=== PATIENT | male | born 1950 | race Caucasian/White ===

== ENCOUNTER 2016-09-27 07:28 | Inpatient (IN) ==
--- NOTE | 2016-09-27 08:07 | Diag Imaging Result Doc PS360 ---
EXAM: CHEST-2 VIEWS HISTORY: poss sepsis TECHNIQUE: PA and lateral chest COMMENT: There is opacification in the left lower lobe which was not present on 03/01/2015. There may be some atelectasis in the right lower lobe as well. The heart size and primary vascularity are within normal limits. IMPRESSION: Left lower lobe pneumonia. Electronically signed by Deangelo Fleming 09/27/2016 8:04 AM
[2016-09-27] MEDS ORDERED: NS 1,000 ML ONE (08:21)
--- NOTE | 2016-09-27 08:23 | PROVIDER DOCUMENTATION ---
HPI-Abdominal Pain/GI Problem - General Chief Complaint: Abdominal Pain Stated Complaint: FALL/RIB PAIN Time Seen by Provider: 09/27/16 08:08 Source: patient, family Allergies/Adverse Reactions: Patient Allergies Allergy/AdvReac Type Severity Reaction Status Date / Time butorphanol tartrate * AdvReac Unknown Verified 03/01/15 17:21 [From Stadol] nalbuphine HCl * AdvReac Unknown Verified 03/01/15 17:21 [From Nubain] Home Medications: Home Medication List Medication Instructions Recorded Confirmed Last Taken Type Buprenorphine S.l. [Subutex] 8 mg SL BID #75 tablet 05/30/15 09/27/16 09/27/16 Rx - History of Present Illness-ABD Nature of Presenting Problems: has had L abd pain intermittantly for 3 mos. Pain is sharp, duration minutes, nothing makes it better, worse. Does not radiate. Says PCP told him to go see his spine doctor. Began running fever sev days ago. Has had nausea, thinks may be more short of breath than usual, not sure since has COPD Abdominal Pain Onset Location: reports: LUQ, LLQ Pain Radiation: reports: no radiation Quality of Pain: reports: sharp Severity in ED: reports: severe Onset/Duration: reports: other (3 mos) Timing: reports: intermittent Activities at Onset: reports: none Exposure to sick contacts?: No Modifying Factors: improves with: nothing Associated Symptoms: reports: fever/chills, nausea. denies: diarrhea Review of Systems - Adult - REVIEW OF SYSTEMS - ADULT Constitutional: reports: fever Eyes: reports: no symptoms reported Ears, Nose, Mouth & Throat: reports: no symptoms reported Cardiovascular: reports: no symptoms reported Respiratory: reports: see HPI, shortness of breath, wheezing Gastrointestinal: reports: see HPI Genitourinary: reports: see HPI Musculoskeletal: reports: no symptoms reported Integumentary: reports: no symptoms reported Neurological: reports: no symptoms reported Psychiatric: reports: no symptoms reported Endocrine: reports: no symptoms reported Hematologic/Lymphatic: reports: no symptoms reported Allergic/Immunologic: reports: no symptoms reported Past History - Adult - PAST MEDICAL HISTORY-ADULT Review of Records: reports: Medications Reviewed Major Childhood Illnesses: reports: history unknown, other (chronic pain) Cardiovascular: reports: denies history Respiratory: reports: COPD Gastrointestinal: reports: denies history Musculoskeletal: reports: other (chronic back pain) Neurological: reports: cognitive dysfunction Psychiatric: reports: ptsd Endocrine/Immune: reports: denies history Other Conditions: reports: denies history - PRIOR SURGERIES/PROCEDURES Surgical/Procedure History: reports: reviewed, not pertinent - FAMILY HISTORY Family History: other (unknown) - SOCIAL HISTORY Smoking: cigarettes Provider spent 3-5 mins advising pt. on dangers of tobacco.: Discussed manners to quit use, and f/u contacts for add'l counseling. Physical Exam-General - PHYSICAL EXAM-ADULT Initial Vital Signs Reviewed: Yes - CONSTITUTIONAL General Appearance: appears well, alert, mild distress - EYES Eyes: PERRL/EOMI, pink conjunctivae - HEAD, EARS, NOSE, MOUTH & THROAT HENMT: normocephalic/atraumatic, moist mucous membranes, normal ENT inspection, pharynx normal, other (poor dentition) - NECK Neck: full range of motion, supple - RESPIRATORY Respiratory: lungs clear, normal breath sounds, no respiratory distress, no accessory muscle use - CARDIOVASCULAR Cardiovascular: normal peripheral pulses, regular rate, rhythm, no edema, no murmur - GASTROINTESTINAL (ABDOMEN) Abdominal Exam: normal bowel sounds, soft, tenderness (mild, to L abd) - MUSCULOSKELETAL Back Exam: normal inspection, no CVA tenderness, no vertebral tenderness Extremity: normal range of motion, non-tender, normal inspection Peripheral Pulses: radial (L): 4+ - SKIN Integumentary: normal color, normal turgor, warm/dry - NEUROLOGIC Neurologic: magistrate assistant II-XII nml as tested, grossly normal, no motor/sensory deficits - PSYCHIATRIC Psych/Mental Status: normal mood/affect, normal thought content, normal thought process, oriented x 3 Progress - PLAN OF CARE/RESULTS Progress/Plan/Lab Results: Vital Signs - 8 hr 09/27/16 07:32 Temperature 102.1 F H Pulse Rate 120 H Respiratory Rate 20 Blood Pressure 121/76 O2 Sat by Pulse Oximetry 98 Orders Category Date Time Status Cardiac Monitoring DIRECTED Care 09/27/16 07:43 Active IV Insertion ORDERED Care 09/27/16 07:43 Active Notify MD of + Sepsis Screen NOW Care 09/27/16 07:43 Active CHEST-2 VIEWS [RAD] Stat Exams 09/27/16 07:43 Completed BLOOD CULTURE [BLDCUL] Stat Lab 09/27/16 08:14 Ordered CBC WITH DIFF [HEME] Stat Lab 09/27/16 08:14 Ordered CK PROFILE [SP CHEM] Stat Lab 09/27/16 08:14 Ordered COMPREHENSIVE METABOLIC PANEL [CHEM] Stat Lab 09/27/16 08:14 Ordered LACTATE, PLASMA [CHEM] Stat Lab 09/27/16 08:14 Ordered PROTIME WITH INR [COAG] Stat Lab 09/27/16 08:14 Ordered PTT [COAG] Stat Lab 09/27/16 08:14 Ordered TROPONIN T Stat Lab 09/27/16 08:14 Ordered Oxygen Device Stat Oth 09/27/16 07:43 Active Result Diagrams: 09/27/16 08:11 09/27/16 08:11 - CT/MRI 1 CT Study: Abdomen, Pelvis Impression: Abnormal CT Results: LLL pneumonia, loculated effusion - CONSULTS/PCP/HOSPITALIST Notification #1 *Consult/PCP/Hospitalist*: [place] Time Discussed: 10:15 Consult Disposition: Will see in ED, Admit Departure - Departure Date of Disposition Decision: 09/27/16 Time of Disposition Decision: 10:06 DIAGNOSIS: Loculated pleural effusion Left lower lobe pneumonia Qualifiers: Pneumonia type: due to unspecified organism Qualified Code(s): J18.1 - Lobar pneumonia, unspecified organism Disposition: ADMITTED INPATIENT 09 Certified Medical Emergency: Emergent Condition: Good Referrals and Follow-Ups: None,PCP [Primary Care Provider] - - Critical Care Note This patient required my direct & personal management of CC.: No
[2016-09-27] MEDS ORDERED: NS 1,000 ML IV ONE (08:27)
[2016-09-27 08:31] LABS: BASO% 0.1 % (0.0-0.8); EOS# 0.06 X1000 (0.0-0.7); EOS% 0.4 % (0.0-10.0); HEMATOCRIT 39.9 % (42.0-52.0); HEMOGLOBIN 13.9 g/dL (14.0-18.0); IMM GRAN# 0.02 X1000 (0.0-0.04); IMM GRAN% 0.1 % (0.0-0.5); LYMPH# 0.33 X1000 (1.2-3.4); LYMPH% 2.4 % (20.5-51.1); MANUAL DIFF NEEDED? NO; MCH 30.4 PG (27-31); MCHC 34.8 g/dL (33-37); MCV 87.3 FL (81-99); MONO% 6.6 % (1.7-9.3); MPV 9.7 FL (7.4-10.4); NEUT% 90.4 % (42.2-75.2); PLT 379 X1000 (130-400); RBC 4.57 XMIL (4.7-6.1)
[2016-09-27 08:36] LABS: INR 1.18; PROTIME 12.5 Seconds (9.2-11.7); PTT 31.6 Seconds (22.0-36.0)
[2016-09-27] MEDS ORDERED: TYLENOL ONE (08:50)
[2016-09-27] MEDS ORDERED: TYLENOL PO ONE (08:50)
[2016-09-27 08:54] LABS: AMYLASE 25 U/L (20-200); LIPASE 13 U/L (13-60)
[2016-09-27 08:56] LABS: AGAP 12; ALBUMIN 3.7 g/dL (3.5-5.0); ALKALINE PHOSPHATASE 88 U/L (32-122); BUN 19 mg/dL (8-22); CHLORIDE 94 mmol/L (98-107); CK PROFILE 28 U/L (24-204); COSMO 280; GOT 9 U/L (10-34); GPT 6 U/L (10-44); POTASSIUM 3.4 mmol/L (3.5-5.1); SODIUM 136 mmol/L (136-145); TCO2 30 mmol/L (25-35); TOTAL BILIRUBIN 0.65 mg/dL (0.20-1.00); TOTAL PROTEIN 6.6 g/dL (6.3-8.3)
--- NOTE | 2016-09-27 09:43 | Diag Imaging Result Doc PS360 ---
EXAM: CT ABD/PELVIS W/ IV CONT ONLY HISTORY: L abd pain TECHNIQUE: CT of the abdomen with intravenous contrast and dose reduction (clarity.) COMMENT: There is opacity in the left lower lobe and lingula with loculated pleural effusion. There are no previous studies available for comparison. There are no gallstones. The aorta is not distended and the mesenteric arteries are patent. There is no evidence of nephrolithiasis hydronephrosis or masses in the kidneys. There is a fair amount of gas present in the colon with stool in the distal descending colon. The small bowel is not distended. The adrenal glands and pancreas are unremarkable. There is no evidence of significant adenopathy. The liver is unremarkable. CT of the pelvis with intravenous contrast: There is no evidence of appendicitis. There is no evidence of free fluid. The urinary bladder is not distended and is somewhat thickened in appearance. The possibility of cystitis cannot be excluded. There is some subchondral cyst formation in both femoral heads and the acetabula. Severe degenerative disc disease is present in the lower lumbar spine. IMPRESSION: Left lower lobe pneumonia and loculated effusion. Constipation. Electronically signed by Deangelo Fleming 09/27/2016 9:40 AM
[2016-09-27] MEDS ORDERED: VANCOMYCIN 1 GM/NS 1 GM/250 ML IVPB IV ONE (10:04)
[2016-09-27] MEDS ORDERED: ZOSYN 3.375 GM/NS 3.375 GM/50 ML IVPB IV ONE (10:04)
[2016-09-27 10:17] LABS: URINE CULTURE NEEDED? NO; URINE MICRO REVIEW NEEDED? NO; URINE SOURCE CLEAN CATCH
[2016-09-27 10:19] LABS: BILIRUBIN URINE NEGATIVE (NEGATIVE); BLOOD URINE MODERATE (NEGATIVE); COLOR YELLOW; GLUCOSE URINE TRACE mg/dL (NEGATIVE); LEUKOCYTES URINE NEGATIVE (NEGATIVE); NITRITE URINE NEGATIVE (NEGATIVE); PROTEIN URINE 70 mg/dL (NEGATIVE); TURBIDITY URINE CLEAR (CLEAR); UROBILINOGEN URINE 8 mg/dL (NORMAL)
[2016-09-27 10:21] LABS: UR EPITHELIAL CELLS <10 /HPF (<10); URINE BACTERIA NEGATIVE /HPF; URINE RBC <10 /HPF (<10); URINE WBC <10 /HPF (<10)
[2016-09-27 10:23] LABS: SP GRAVITY URINE 1.015
[2016-09-27 11:48] LABS: UR AMPHETAMINES QUAL NONE DETECTED (NONE DETECT); UR BARBITUATES QUAL NONE DETECTED (NONE DETECT); UR BENZODIAZEPIN QUAL PRESUMPTIVE POSITIVE (NONE DETECT); UR CANNABINOIDS QUAL NONE DETECTED (NONE DETECT); UR COCAINE QUAL NONE DETECTED (NONE DETECT); UR METHADONE QUAL NONE DETECTED (NONE DETECT); UR OPIATES QUAL NONE DETECTED (NONE DETECT); UR OXYCODONE QUAL NONE DETECTED (NONE DETECT); UR PCP QUAL NONE DETECTED (NONE DETECT)
[2016-09-27] MEDS ORDERED: VANCOMYCIN IV PER PHARMACY MISC SCH (14:01)
[2016-09-27] MEDS ORDERED: DUONEB (A & A) INH PRN (14:01)
[2016-09-27] MEDS ORDERED: VANCOMYCIN 500 MG/NS 500 MG/100 ML IVPB IV ONE (15:00)
[2016-09-27] MEDS: NICODERM PATCH TD SCH (15:14)
[2016-09-27] MEDS: NS 1,000 ML IV SCH (15:15)
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
[2016-09-27] MEDS: DUONEB (A & A) INH SCH ×4 (16:04→23:10)
[2016-09-27] MEDS: ZOSYN 3.375 GM/NS 3.375 GM/50 ML IVPB IV SCH ×2 (17:00→21:10)
[2016-09-27] MEDS: HUMALOG SUBQ SCH ×2 (18:18→21:13)
[2016-09-27] MEDS: TYLENOL PO PRN (18:25)
[2016-09-27] MEDS ORDERED: SUBUTEX SL SCH (21:00)
[2016-09-27] MEDS: SUBOXONE 8 MG/2 MG SL SCH (21:10)
[2016-09-28] MEDS: TYLENOL PO PRN ×2 (03:09→16:32)
[2016-09-28] MEDS: ZOSYN 3.375 GM/NS 3.375 GM/50 ML IVPB IV SCH ×4 (03:09→21:11)
[2016-09-28] MEDS: NS 1,000 ML IV SCH ×2 (03:11→16:28)
[2016-09-28] MEDS: DUONEB (A & A) INH SCH ×6 (03:56→22:24)
[2016-09-28 07:00] LABS: HEMATOCRIT 37.3 % (42.0-52.0); HEMOGLOBIN 12.7 g/dL (14.0-18.0); MCH 30.2 PG (27-31); MCV 88.8 FL (81-99); MPV 9.5 FL (7.4-10.4); RBC 4.2 XMIL (4.7-6.1)
[2016-09-28 07:03] LABS: HEMOGLOBIN A1C 5.6 % (4.8-6.0)
[2016-09-28 07:15] LABS: AGAP 12; BUN 10 mg/dL (8-22); CALCIUM 8.6 mg/dL (8.8-10.2); CHLORIDE 101 mmol/L (98-107); COSMO 284; IRON SATURATION 9 %; POTASSIUM 3.7 mmol/L (3.5-5.1); SODIUM 142 mmol/L (136-145); TCO2 29 mmol/L (25-35); TIBC 116 ug/dL; TOTAL IRON 10 ug/dL (53-167); UNBOUND IRON 106 ug/dL (112-346)
--- NOTE | 2016-09-28 07:33 | Diag Imaging Result Doc PS360 ---
EXAM: CT THORAX W/CONTRAST HISTORY: pna, left lower effusion. TECHNIQUE: Dose reduction protocol COMPARISON: None. FINDINGS: There are multiple loculations within a moderate-sized left-sided pleural effusion. No right-sided effusion. No cardiomegaly. No thoracic aortic aneurysm or dissection. The brachiocephalic artery goes behind the trachea and esophagus. This is a normal variant. Mildly prominent mediastinal and left hilar lymph nodes. Tiny nonspecific nodular densities in the lower left lung. There is atelectasis to the left lower lobe and there may be small underlying infiltrates. Limited images through the upper abdomen reveal fatty infiltration of liver and a distended gallbladder IMPRESSION: 1.Multiple septations/loculations within the left pleural effusion 2.Left lower lobe atelectasis with possible underlying infiltrates 3.Mildly prominent mediastinal and hilar lymph nodes. Electronically signed by Travis Sosa 09/28/2016 7:31 AM
[2016-09-28] MEDS: LOVENOX SUBQ SCH (09:05)
[2016-09-28] MEDS: SUBOXONE 8 MG/2 MG SL SCH ×2 (09:05→21:12)
[2016-09-28] MEDS: NICODERM PATCH TD SCH (09:06)
[2016-09-28] MEDS: HUMALOG SUBQ SCH ×4 (09:07→21:14)
--- NOTE | 2016-09-28 13:26 | PROGRESS NOTE ---
DATE: 09/28/2016 SUBJECTIVE: This morning, Mr. Dia refers to be doing a lot better than yesterday. He said his chest pain has improved and his breathing also has significantly improved. OBJECTIVE: Vital signs: Blood pressure is 92/51, pulse of 66, respirations 18 , temperature 98.6 degrees. General: Mr. Dia is a 65-year-old male. He is in bed, not seemingly distressed. HEENT: Mucosa is pink, slightly dry. Anicteric. Acyanotic. Neck : Supple. The patient has very poor dentition. Chest: Air entry is bilaterally reduced, more so to the right to the left posterior lung field. Some crepitations. No rhonchi. Cardiovascular: Regular rate and rhythm. Abdomen: Soft, nontender. Extremities: No pedal edema. CONTINUOUS IMPROVEMENT MANAGER: Patient is awake, alert, and oriented. LABORATORY DATA: WBC is up to 21.8. Hemoglobin is 12.9, platelet count of 362, 000. Chemistry is reviewed. Completely unremarkable. The patient has an iron level of 10 with percent saturation of 9. Ferritin is 281 but I guess this is acute phase reactant. Folate is 9.6. A CT scan of the chest, which was done yesterday shows multiple loculations within the left pleural effusion and left lower lobe atelectasis with possible underlying infiltrates. ASSESSMENT: 1. Multiloculated left pleural effusion. 2. Suspected aspiration pneumonia. 3. Poor dentition. 4. Volume depletion. 5. Relative iron deficiency. 6. Malnourished. PLAN: We are going to continue with the current antibiotics. We have already consulted Infectious disease and also surgery. I spoke with Dr. Bob. He plans to do thoracostomy with possible decortication. This will be done Wednesday due to the holidays. . For now, we are going to continue with the current antibiotics and pain management. cc: Jose Fisher MD [facility]
[2016-09-28] MEDS ORDERED: NS 250 ML ONE (13:42)
[2016-09-28] MEDS: VANCOMYCIN 1,500 MG in NS 250 ML IV SCH (16:27)
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
[2016-09-29] MEDS: TYLENOL PO PRN ×3 (01:41→23:56)
[2016-09-29] MEDS: ZOSYN 3.375 GM/NS 3.375 GM/50 ML IVPB IV SCH ×4 (03:27→22:46)
[2016-09-29] MEDS: NS 1,000 ML IV SCH ×2 (03:27→06:30)
[2016-09-29] MEDS: DUONEB (A & A) INH SCH ×6 (03:42→23:13)
[2016-09-29] MEDS: HUMALOG SUBQ SCH ×4 (06:31→20:35)
[2016-09-29 07:09] LABS: HEMATOCRIT 33.7 % (42.0-52.0); HEMOGLOBIN 11.4 g/dL (14.0-18.0); MCH 30.4 PG (27-31); MCHC 33.8 g/dL (33-37); MCV 89.9 FL (81-99); MPV 9.9 FL (7.4-10.4); RBC 3.75 XMIL (4.7-6.1)
[2016-09-29 08:39] LABS: AGAP 12; BUN 8 mg/dL (8-22); CALCIUM 8.1 mg/dL (8.8-10.2); CHLORIDE 101 mmol/L (98-107); COSMO 280; POTASSIUM 2.9 mmol/L (3.5-5.1); SODIUM 141 mmol/L (136-145); TCO2 28 mmol/L (25-35)
[2016-09-29] MEDS: SUBOXONE 8 MG/2 MG SL SCH ×2 (08:49→20:34)
[2016-09-29] MEDS: NICODERM PATCH TD SCH (08:49)
[2016-09-29] MEDS: LOVENOX SUBQ SCH (08:50)
--- NOTE | 2016-09-29 10:33 | PROGRESS NOTE ---
DATE: 09/29/2016 SUBJECTIVE: This is hospital day 3 for Mr. Dia. He is a 65-year-old white male who has a history of a fall off a ladder 2 months ago. He has been experiencing increasing weakness, intermittent fever and chills and left chest pain for the last month. He is admitted with a possible left lower lobe pneumonia and also loculated fluid collections left chest. We were asked to evaluate him because of his chest CT scan and the fluid, left chest. Clinically, he seems improved today. His white blood cell count went from 21-19 hematocrit is 33%. OBJECTIVE: He is afebrile. His heart rate is 86, O2 saturations 94%. He does have a productive cough. He is voiding without difficulty. His sugar is well controlled. He is on IV Zosyn and vancomycin. Electrolytes are satisfactory with a BUN of 8 and creatinine 0.5. He is on a regular diet. ASSESSMENT/PLAN: We may have to put him through a left thoracotomy to drain this fluid, depending on how he does clinically. I have discussed this with the patient and the family yesterday evening. We will re-evaluate him tomorrow. cc: Merary Bob MD
[2016-09-29] MEDS ORDERED: KLOR-CON PO ONE (12:18)
--- NOTE | 2016-09-29 13:44 | PROGRESS NOTE ---
DATE: 09/29/2016 SUBJECTIVE: The patient has no focal complaints. OBJECTIVE: Vital Signs: Blood pressure 108/69, heart rate of 95, respiratory rate 16, satting 94% on room air, temperature 98.2 with a T-max of 100.4 degrees. Cardiovascular: Regular rate and rhythm. Pulmonary: Decreased breath sounds at the bases. GI: Soft, nontender, nondistended. Bowel sounds are positive. LABS: White count is 19, hemoglobin and hematocrit 11 and 30, platelets 318, potassium 2.9. PROBLEM LIST: 1. Multiloculated effusion and pneumonia. We will continue empiric antibiotics. He is on Zosyn and vancomycin. Vancomycin is day 2 and Zosyn is day 3, and we will continue to follow. I think he probably will need fluoroscopy that will be per Dr. Bob possibly listed in the next day or two. We will need to get cultures and follow closely. 2. Volume depletion. Continue intravenous fluids. 3. Protein calorie malnutrition. We will continue treatment and follow closely. DISPOSITION: Pending his clinical course. cc: Sandeep Lin MD
[2016-09-29] MEDS: VANCOMYCIN 1,500 MG in NS 250 ML IV SCH (14:28)
--- NOTE | 2016-09-29 16:34 | PROGRESS NOTE ---
DATE: 09/29/2016 PRESENT ILLNESS: The patient has a left lower lobe infiltrate surrounded by pleural effusion with multiple loculations. On examination, patient has decreased breath sounds in the left base. Both Dr. Fisher and I think the patient may have a trapped lung due to the pleural effusions. MEDICATIONS: The patient is receiving a combination of vancomycin and Zosyn for now a total of 2 days. PHYSICAL EXAMINATION: Vital Signs: Temperature is 100 degrees, pulse 99, respirations 18, blood pressure 128/81. General: This is a chronically ill-appearing middle-aged male. He is in no acute distress. He actually looks better than when he came in. He is more alert. He is not coughing. He does not appear as short of breath. ENT: Patient is missing many of his teeth. The teeth he does have are necrotic. Lungs: There were diminished breath sounds and rales heard in the left base. The right lung was clear. Thorax: Patient has an increased AP diameter of the chest. Abdomen: Soft and nontender. LABORATORY AND X-RAY: There is no new x-ray. The patient's CBC shows a white count of 19,820, hemoglobin 11.4, and platelet count 318,000. Creatinine is 0.5. GFR is greater than 60. Sputum grew a normal cruz. Blood cultures so far are negative. Patient's immunoglobulin A level was normal, IgG had only a minimal suppression. It was 678 with 700 being the normal, 700 or above. ASSESSMENT AND PLAN: 1. The patient has pneumonia with possible trapped lung. Our plan is to continue with his current antibiotics. Dr. Bob has seen the patient and will decide if he feels surgery is indicated. In the meanwhile, the patient is not smoking which I think is helping him to do better. The patient's depression and IgG at 678 is so minimal and I do not think it deserves immunoglobulin replacement therapy. The patient's daughter is very concerned that her father may have H. Pylori disease because she has it and she feels like he has many of the symptoms that she has. For this reason, I have ordered a stool for Helicobacter pylori antigen. 2. Comorbidities: He is malnourished. He is smokes cigarettes. He has chronic obstructive pulmonary disease. He also has extremely poor dental hygiene and I think he needs to have the remaining teeth he has extracted from his mouth. cc: Stuart Bustillos MD
[2016-09-30] MEDS: DUONEB (A & A) INH SCH ×6 (03:53→23:20)
[2016-09-30] MEDS: NS 1,000 ML IV SCH ×2 (04:38→10:05)
[2016-09-30] MEDS: ZOSYN 3.375 GM/NS 3.375 GM/50 ML IVPB IV SCH ×4 (04:38→22:34)
[2016-09-30] MEDS: HUMALOG SUBQ SCH ×3 (06:24→21:09)
[2016-09-30 06:39] LABS: HEMATOCRIT 32.3 % (42.0-52.0); HEMOGLOBIN 10.8 g/dL (14.0-18.0); MCH 29.4 PG (27-31); MCHC 33.4 g/dL (33-37); RBC 3.67 XMIL (4.7-6.1)
[2016-09-30 07:06] LABS: AGAP 11; BUN 7 mg/dL (8-22); CALCIUM 8.2 mg/dL (8.8-10.2); CHLORIDE 103 mmol/L (98-107); COSMO 282; POTASSIUM 3.2 mmol/L (3.5-5.1); SODIUM 142 mmol/L (136-145); TCO2 28 mmol/L (25-35)
[2016-09-30] MEDS: LOVENOX SUBQ SCH (09:35)
--- NOTE | 2016-09-30 09:49 | PROGRESS NOTE ---
DATE: 09/30/2016 SUBJECTIVE: Mr. Dia is a 65-year-old white male, who was admitted with pneumonia and loculated fluid collections left chest. He has had intermittent fevers but, clinically, he feels better. His white blood cell count is improving on IV Zosyn and vancomycin. It went from 20 to 16 over the last 24 hours. Hematocrit is 32%. OBJECTIVE: His heart rate is 101, blood pressure 115/75, O2 saturation 95%. He is voiding without difficulty. He did eat breakfast but we feel we are going to probably have to drain his left chest fluid and possibly perform left lower lobe decortication so that lung can expand. I have discussed this in detail with the patient and his family. IV antibiotics will continue. cc: Merary Bob MD
[2016-09-30] MEDS: SUBOXONE 8 MG/2 MG SL SCH ×2 (10:06→22:54)
[2016-09-30] MEDS: ZOFRAN IV PRN (13:00)
[2016-09-30] MEDS: VANCOMYCIN 1,500 MG in NS 250 ML IV SCH (14:24)
[2016-09-30] MEDS ORDERED: DIPRIVAN 1% ONE (14:36)
[2016-09-30] MEDS ORDERED: QUELICIN (DOSE) ONE (14:36)
[2016-09-30] MEDS ORDERED: XYLOCAINE-MPF 2% ONE (14:36)
[2016-09-30] MEDS ORDERED: VERSED ONE ×2 (14:40→15:15)
[2016-09-30] MEDS ORDERED: HURRICAINE SPRAY (DOSE) ONE (15:52)
[2016-09-30] MEDS ORDERED: OFIRMEV 1000 MG/ISOTONIC SOLN 1,000 MG/100 ML BOTTLE ONE (16:26)
[2016-09-30 16:51] LABS: BILIRUBIN URINE NEGATIVE (NEGATIVE); BLOOD URINE SMALL (NEGATIVE); COLOR YELLOW; GLUCOSE URINE NEGATIVE (NEGATIVE); LEUKOCYTES URINE NEGATIVE (NEGATIVE); NITRITE URINE NEGATIVE (NEGATIVE); PH URINE 6.5; PROTEIN URINE TRACE mg/dL (NEGATIVE); SP GRAVITY URINE 1.017; TURBIDITY URINE CLEAR (CLEAR); UR EPITHELIAL CELLS <10 /HPF (<10); URINE BACTERIA NEGATIVE /HPF; URINE MICRO REVIEW NEEDED? NO; URINE RBC <10 /HPF (<10); URINE SOURCE CATH; URINE WBC <10 /HPF (<10); UROBILINOGEN URINE 2 mg/dL (NORMAL)
[2016-09-30] MEDS ORDERED: KETALAR ONE (16:55)
[2016-09-30] MEDS ORDERED: SODIUM CHLORIDE 0.9% ONE (17:01)
[2016-09-30] MEDS ORDERED: EXPAREL 1.3% ONE (17:01)
[2016-09-30] MEDS ORDERED: MARCAINE 0.25% PF ONE (17:01)
[2016-09-30] MEDS ORDERED: ROBINUL ONE (17:09)
[2016-09-30] MEDS ORDERED: NEOSTIGMINE ONE (17:09)
[2016-09-30] MEDS ORDERED: FENTANYL ONE (17:30)
[2016-09-30] MEDS ORDERED: VENTOLIN HFA ONE (17:39)
--- NOTE | 2016-09-30 18:27 | OPERATIVE NOTE ---
PROCEDURE DATE: 09/30/2016 PREOPERATIVE DIAGNOSE: Empyema, left chest. POSTOPERATIVE DIAGNOSIS: Empyema, left chest. PRINCIPAL PROCEDURE: Left thoracotomy with decortication. SURGEON: Merary Bob MD. SENIOR DATABASE ADMINISTRATOR: Dread Hagen MD ANESTHESIA: General. ESTIMATED BLOOD LOSS: 250 mL. DRAINS: Two #32-Samoan left chest tubes. INDICATIONS: Mr. Reggie Dia is a 65-year-old white male who is admitted on 09/27/2016 with fever and chills and an abnormal chest x-ray. CT scan of the chest suggests an atelectatic left lower lobe and also loculated fluid in the left chest. He has been having symptoms for approximately 1-2 months. His symptoms began after a fall off a ladder. It was felt that he needed a left thoracotomy with decortication. Findings his left thorax was acutely inflamed. It had pockets of fluid as described on the CT scan. Several pockets along the diaphragm and then there was a pocket posteriorly and superiorly in the left chest. There was an inflammatory rind on the surface of the lung, the lower lobe more so than the upper lobes. We were able to remove that rind from the surface of the lung fairly well using lap pads, sponge, instrument and our fingers. We were able to mobilize the lung off the chest wall and the mediastinum. We felt we had freed the lung up well without injuring the lung that much, and we removed most of the surface find from the surface of the lung. DESCRIPTION OF PROCEDURE: The patient was brought to the operating room, placed supine, received general anesthesia, was intubated with a double-lumen tube per Dr. Harris. I was present during position and we put him in the right lateral decubitus position with a roll underneath his right axilla. There was a pillow between his legs, and we taped him at the hip. His left chest was prepped and draped within a sterile field. I used an Ioban on the skin. He was already on IV antibiotics and I made a left thoracotomy incision with a 10 blade scalpel. This incision was carried down through the skin with the scalpel and then I used the cautery to transect the subcutaneous tissue and the muscle layers beginning with the latissimus dorsally. We elevated the left scapula with the scapula retractor. We counted the ribs and we entered the 6th intercostal space using cautery. The lung was deflated so we did not injure it, and we entered the left chest. Initially, I used my hand to get into the left chest and carefully mobilized the lung off the thorax with blunt finger dissection. We then used a rib highway patrol pilot for better exposure, and again, most of the initial dissection was making sure we were in the right plane and then using our fingers and finger-fracture technique to mobilize the lung off the left chest. We did take cultures of the fluid we used suction. This was a bloody operation and we lost approximately 250 mL. We then took time once the lung was mobilized off the diaphragm and the thorax and the mediastinum to remove the inflammatory rind on the surface of the lung. This rind was much more present on the inferior lung than the superior lung. We used a sponge stick, fingers and lap pads to peel the inflammatory rind off the surface of the lung. We felt this rind peeled nicely off the surface of the lung without much injury to the lung itself, and we felt we had freed up each lobe of the left lung fairly well. We took time to thoroughly irrigate the left chest and the lung, and then we placed 2 chest tubes, one anteriorly and one posteriorly. These were 32-Samoan chest tubes, and they were brought out inferior to our thoracotomy incision anterior axillary line. They were secured to the skin with 0 silk stitches. The lung was inflated and we felt it inflated nicely. We then deflated it slightly to reapproximate the ribs with a rib approximator and #2 Vicryl stitches. We then closed the intercostal muscles with a running 2-0 Vicryl stitch. Then we used 0 Vicryl stitches to reapproximate our muscle layers and then we used the skin clip induction heat treater to reapproximate the skin. The chest tubes will be hooked to -20 cm of suction. The wound was dressed. Plans were to extubate him and take him to the ICU. It must be noted that Dr. Hagen was present throughout this operation. His presence was necessary for exposure, decision making and also help with mobilizing this lung and removing the rind off its surface. He also help place a chest tube and close the left chest. cc: Merary Bob MD
[2016-09-30 18:33] LABS: ALLEN TEST NO; BE 0.7 mmoll (-3.0-3.0); BLOOD TYPE ARTERIAL; DRAW SITE OTHER; METHB 1.4 % (0.0-1.5); O2(CT) 16.2 mL/dL (15.0-23.0); PCO2(98.6) 40 mmHg (35-45); PO2(98.6) 160 mmHg (60-100); SAMPLE BLOOD; SAO2 99.2 % (95.0-100.0); THB 11.7 g/dL (11.5-17.4); pH(98.6) 7.41 (7.35-7.45)
[2016-09-30] MEDS ORDERED: TORADOL ONE (18:35)
[2016-09-30] MEDS ORDERED: LR 1,000 ML ONE (18:35)
[2016-09-30 18:36] LABS: MODALITY COOL AEROSOL
[2016-09-30] MEDS ORDERED: MORPHINE IV PRN (18:40)
[2016-09-30] MEDS ORDERED: SODIUM CHLORIDE 0.9% INJ PRN (18:40)
--- NOTE | 2016-09-30 18:49 | Diag Imaging Result Doc PS360 ---
CHEST-PORTABLE - 09/30/2016 INDICATION: S/P LT THORACOTOMY TECHNIQUE: COMPARISON: 09/27/2016 FINDINGS: There are two left-sided chest tubes. There is increased infiltrate throughout the left midlung and base. No pneumothorax or large effusion. There is a small amount of soft tissue gas around the chest wall. There is a right PICC line in good position. Heart size is top normal. There is some increasing strandy atelectasis at the right lung base. IMPRESSION: Nonspecific findings. No obvious complication. Electronically signed by Eugene Harris 09/30/2016 6:47 PM
[2016-09-30] MEDS ORDERED: MORPHINE ONE (19:11)
[2016-09-30] MEDS ORDERED: LR 0 ML ONE (19:11)
[2016-09-30] MEDS: DEMEROL IV PRN ×2 (21:05→23:26)
[2016-09-30] MEDS: OFIRMEV 1000 MG/ISOTONIC SOLN 1,000 MG/100 ML BOTTLE IV SCH (22:53)
[2016-09-30] MEDS: POTASSIUM CHLORIDE 20 MEQ/SWI 20 MEQ/100 ML IVPB IV SCH ×2 (22:57→23:24)
[2016-10-01] MEDS: TORADOL IV SCH ×4 (00:45→18:09)
[2016-10-01] MEDS: POTASSIUM CHLORIDE 20 MEQ/SWI 20 MEQ/100 ML IVPB IV SCH ×2 (01:33→01:46)
[2016-10-01] MEDS: DEMEROL IV PRN ×9 (02:23→20:29)
[2016-10-01] MEDS: DUONEB (A & A) INH SCH ×6 (02:58→23:16)
[2016-10-01] MEDS: ZOSYN 3.375 GM/NS 3.375 GM/50 ML IVPB IV SCH ×4 (04:32→21:57)
[2016-10-01] MEDS: OFIRMEV 1000 MG/ISOTONIC SOLN 1,000 MG/100 ML BOTTLE IV SCH ×4 (04:32→21:57)
[2016-10-01 05:24] LABS: HEMATOCRIT 30.8 % (42.0-52.0); HEMOGLOBIN 10.4 g/dL (14.0-18.0); MCH 29.6 PG (27-31); MCHC 33.8 g/dL (33-37); MCV 87.7 FL (81-99); MPV 9.6 FL (7.4-10.4); RBC 3.51 XMIL (4.7-6.1)
[2016-10-01 06:21] LABS: AGAP 8; BUN 7 mg/dL (8-22); CALCIUM 8.1 mg/dL (8.8-10.2); CHLORIDE 101 mmol/L (98-107); COSMO 273; POTASSIUM 3.7 mmol/L (3.5-5.1); SODIUM 136 mmol/L (136-145); TCO2 27 mmol/L (25-35)
[2016-10-01] MEDS: HUMALOG SUBQ SCH ×5 (06:32→20:30)
[2016-10-01] MEDS: LOVENOX SUBQ SCH (06:33)
[2016-10-01] MEDS: NICODERM PATCH TD SCH ×2 (07:26→08:52)
[2016-10-01] MEDS: LR 1,000 ML IV SCH ×3 (07:27→20:31)
[2016-10-01] MEDS: SUBOXONE 8 MG/2 MG SL SCH ×2 (08:52→20:31)
--- NOTE | 2016-10-01 10:29 | PROGRESS NOTE ---
DATE: 10/01/2016 SUBJECTIVE: The patient has no focal complaints. OBJECTIVE: Blood pressure 103/67, heart rate of 90, respiratory rate 15, temperature 97.8 and 98% on 4 L. Cardiovascular: Regular rate and rhythm. Pulmonary: Bilateral breath sounds. Clear to auscultation. GI: Soft, nontender, nondistended. Bowel sounds are positive. LABORATORY DATA: White count 13, hemoglobin and hematocrit 10 and 30. Platelets 333,000. CMP normal. PROBLEM LIST: 1. Multiloculated pleural effusion, status post thoracotomy. Postop day 1. He is doing well. He has [address] Management per surgery following in the ICU right now. Fluid samples are in the lab and are being cultured. I do think we should check cytology other markers on the fluid just to see what the nature of the effusion is, although at this point, I think it likely would be exudative. 2. Volume depletion. Continue IV fluids and follow. 3. Protein calorie malnutrition continue supportive treatments and follow. DISPOSITION: Pending clinical course. Now that he has the loculated effusion taken care of, he should steadily improved. Continue to follow. cc: Sandeep Lin MD
[2016-10-01] MEDS: PHENERGAN IV PRN (11:12)
[2016-10-01 11:16] LABS: SPECIMEN PLEURAL FLUID
[2016-10-01 11:18] LABS: DIFF NEEDED? YES; WBC BF 11203 /cumm
[2016-10-01 12:06] LABS: MONOS 2 %; POLYS 98 %
--- NOTE | 2016-10-01 13:05 | PROGRESS NOTE ---
DATE: 10/01/2016 SUBJECTIVE: Mr. Reggie Dia is in the ICU. He awakens easily. He has been using his incentive spirometry and has a good cough. He still has [address] left [address] place[address] He does not have an air leak in either chest tube and the drainage has been acceptable. He seems to be breathing comfortably. Hemodynamically satisfactory and will remove his arterial line. Tomorrow, we will plan to remove his Montanez catheter tube. We need to increase his activity. That will be easier as these tubes are removed. He remains on IV antibiotics, vancomycin and Zosyn. We will give him a regular diet. OBJECTIVE: He is afebrile. Heart rate 84, blood pressure 88/61. O2 saturation 96%. Urine output is adequate. His white blood cell count went from 15.8-13.3. Hematocrit is 31%. Electrolytes are within normal limits. His left chest wound is dressed. cc: Merary Bob MD
[2016-10-01] MEDS: VANCOMYCIN 1,500 MG in NS 250 ML IV SCH (15:24)
--- NOTE | 2016-10-01 18:49 | PROGRESS NOTE ---
DATE: 10/01/2016 PRESENT ILLNESS: The patient is status post decortication of his left lower lobe. MEDICATIONS: The patient is on vancomycin and Zosyn now for a total of 4 days. PHYSICAL EXAMINATION: Vital Signs: Temperature is 97.6 degrees, pulse 95, respirations 16, blood pressure 86/51. General: This is a chronically ill-appearing, middle-aged male who currently is in no acute distress. He does have pleuritic chest pain. Head, eyes, ears, nose, and throat: He is missing many of his teeth and the teeth he does have are necrotic. Lungs: There were bilateral basilar rales. Thorax: Patient has an increased AP diameter of the chest. He also has chest tubes in place. Cardiovascular: Heart rate is regular. Abdomen: Soft and nontender. Extremities: Patient has a PICC in place. The site is not erythematous or swollen. LAB AND X-RAY: Thus far all cultures from surgery are negative. Chest x-ray shows diffuse left lung infiltrate. The patient's CBC shows a white count of 13,260, hemoglobin 10.4, and a platelet count of 333,000. Patient's creatinine is 0.5. The GFR is greater than 60. ASSESSMENT AND PLAN: Patient has postop decortication. The plan is to continue with the patient's current antibiotics pending culture results. The patient did have a slight depression of his IgG at 678. However, this is so minimal that it does not require immunoglobulin replacement therapy. The patient's comorbidities include malnutrition, cigarette smoking, COPD, very poor dental hygiene. cc: Stuart Bustillos MD
[2016-10-02] MEDS: TORADOL IV SCH ×4 (01:54→18:14)
[2016-10-02] MEDS: VANCOMYCIN 1,500 MG in NS 250 ML IV SCH (02:00)
[2016-10-02] MEDS: DUONEB (A & A) INH SCH ×6 (02:39→23:03)
[2016-10-02] MEDS: ZOFRAN IV PRN (03:19)
[2016-10-02] MEDS: OFIRMEV 1000 MG/ISOTONIC SOLN 1,000 MG/100 ML BOTTLE IV SCH ×4 (04:24→22:40)
[2016-10-02] MEDS: ZOSYN 3.375 GM/NS 3.375 GM/50 ML IVPB IV SCH ×4 (04:24→22:41)
[2016-10-02 04:47] LABS: HEMATOCRIT 27.8 % (42.0-52.0); HEMOGLOBIN 9.2 g/dL (14.0-18.0); MCH 30.4 PG (27-31); MCHC 33.1 g/dL (33-37); MCV 91.7 FL (81-99); MPV 9.5 FL (7.4-10.4); RBC 3.03 XMIL (4.7-6.1)
[2016-10-02 05:29] LABS: AGAP 9; BUN 8 mg/dL (8-22); CALCIUM 7.6 mg/dL (8.8-10.2); CHLORIDE 106 mmol/L (98-107); COSMO 287; POTASSIUM 3.1 mmol/L (3.5-5.1); SODIUM 144 mmol/L (136-145); TCO2 29 mmol/L (25-35)
[2016-10-02] MEDS: LOVENOX SUBQ SCH (06:19)
[2016-10-02] MEDS: HUMALOG SUBQ SCH ×4 (06:25→21:19)
--- NOTE | 2016-10-02 07:22 | Diag Imaging Result Doc PS360 ---
EXAM: CHEST-PORTABLE HISTORY: s/p decortication L chest. TECHNIQUE: Erect AP portable at 0515 COMMENT: There is are two chest tubes in the left hemithorax. There is some improvement in the consolidation and opacification of the left midlung field. There is still residual atelectasis in the left lower lobe. There may be some loculated pleural fluid laterally. Minimal atelectasis is present in the right base. IMPRESSION: Improved atelectasis on the left. Electronically signed by Deangelo Fleming 10/02/2016 7:20 AM
[2016-10-02] MEDS: LR 1,000 ML IV SCH ×2 (08:10→21:20)
[2016-10-02] MEDS: SUBOXONE 8 MG/2 MG SL SCH (08:11)
[2016-10-02] MEDS: NICODERM PATCH TD SCH (08:13)
[2016-10-02] MEDS ORDERED: KLOR-CON PO ONE (09:03)
--- NOTE | 2016-10-02 10:36 | PROGRESS NOTE ---
DATE: 10/02/2016 SUBJECTIVE: The patient has no focal complaints. OBJECTIVE: Vital Signs: Blood pressure 103/70, heart rate of 92, respiratory of 15, temperature 97.9 degrees, 97% on room air. Cardiovascular: Regular rate and rhythm. Pulmonary: Bilateral breath sounds. Clear to auscultation. GI: Soft, nontender, nondistended. Bowel sounds are positive. LABORATORY DATA: White count is hemoglobin 9 and hematocrit 27. Platelets 335,000. Potassium 3.1. White blood cell count 11,000, 98% segs. Total protein 3. LDH at 1827 . AFB was negative. Fungal smear was negative. PROBLEM LIST: 1. Multiloculated pleural effusion. Status post thoracotomy, postop day 2. He is doing well. Chest tubes are still in place to suction. Surgery is managing. Discontinuing the chest tube. We will continue empiric antibiotics and follow. Effusion is consistent with exudative effusion, and so far, he is growing Klebsiella out of his sputum, which is sensitive to multiple antibiotics including Zosyn. I think we could possibly consider stopping his vancomycin because it looks like it is Klebsiella. 2. Anemia. Appears to be stable. 3. Chronic obstructive pulmonary disease. Appears to be stable on current treatment. 4. Disposition. We will continue to follow very closely. Hopefully out of the ICU here soon. cc: Sandeep Lin MD
[2016-10-02] MEDS: DEMEROL IV PRN ×2 (17:44→22:47)
--- NOTE | 2016-10-02 18:51 | PROGRESS NOTE ---
DATE: 10/02/2016 PRESENT ILLNESS: The patient is status post decortication of the left lower lobe. MEDICATIONS: Patient is just on Zosyn now for 5 days. Vancomycin has been discontinued. PHYSICAL EXAMINATION: Vital Signs: Temperature is 97.7 degrees, pulse 91, respirations 15, blood pressure 111/73. General: This is a chronically middle-aged male. He does have some pain in the left side of his chest when he moves or takes deep respirations. This is side that has all of the chest tubes in. Lungs: Clear on the right side. On the left side there were some rhonchi and rales heard in the left lower lobe. Thorax: The patient has chest tubes in place. Cardiovascular: Heart rate is regular. Abdomen: Soft and not tender. LAB AND X-RAY: The CBC for today shows a white count of 9140, hemoglobin 9.2 and platelet count 335,000. Creatinine 0.6. GFR is greater than 60. AFB and fungal smears were negative for organisms, cultures thus far of the surgical specimens is negative. ASSESSMENT AND PLAN: Patient is status post decortication. I plan to continue with his current antibiotics. COMORBIDITIES: Include malnutrition, cigarette smoking, COPD and very poor dental hygiene. cc: Stuart Bustillos MD
[2016-10-02] MEDS: SUBUTEX SL SCH ×2 (21:21→21:24)
[2016-10-03] MEDS: TORADOL IV SCH ×4 (01:29→18:08)
[2016-10-03] MEDS: DUONEB (A & A) INH SCH ×6 (03:32→23:07)
[2016-10-03] MEDS: ZOSYN 3.375 GM/NS 3.375 GM/50 ML IVPB IV SCH ×4 (04:33→21:35)
[2016-10-03] MEDS: OFIRMEV 1000 MG/ISOTONIC SOLN 1,000 MG/100 ML BOTTLE IV SCH ×2 (04:33→10:08)
[2016-10-03] MEDS: LOVENOX SUBQ SCH (05:30)
[2016-10-03] MEDS: DEMEROL IV PRN ×9 (05:33→22:11)
[2016-10-03 05:56] LABS: HEMATOCRIT 27.9 % (42.0-52.0); HEMOGLOBIN 9.2 g/dL (14.0-18.0); MCH 29.7 PG (27-31); MPV 8.9 FL (7.4-10.4); RBC 3.1 XMIL (4.7-6.1)
[2016-10-03 06:09] LABS: AGAP 9; BUN 7 mg/dL (8-22); CALCIUM 7.9 mg/dL (8.8-10.2); CHLORIDE 100 mmol/L (98-107); COSMO 277; POTASSIUM 3.5 mmol/L (3.5-5.1); SODIUM 140 mmol/L (136-145); TCO2 31 mmol/L (25-35)
[2016-10-03] MEDS: HUMALOG SUBQ SCH ×4 (07:29→20:16)
[2016-10-03] MEDS: NICODERM PATCH TD SCH (09:07)
[2016-10-03] MEDS: SUBUTEX SL SCH ×2 (09:08→20:17)
[2016-10-03] MEDS: LR 1,000 ML IV SCH (10:09)
[2016-10-03] MEDS: ZOFRAN IV PRN ×3 (10:18→20:54)
[2016-10-03] MEDS ORDERED: PRILOSEC PO ONE (11:44)
--- NOTE | 2016-10-03 12:09 | PROGRESS NOTE ---
DATE: 10/03/2016 SUBJECTIVE: Mr. Dia is now postop day 3 from a left thoracotomy and decortication of left lung for infection. He is awake. He is still in the ICU. He still has [address] They are not draining much and there is not a significant air leak, so we will remove the anterior left chest tube today. He is up in a chair. Hemodynamically, he is satisfactory. His white blood cell count is now normal. OBJECTIVE: His heart rate is 95, blood pressure 113/79, O2 saturation 95%. He is afebrile. He is eating 50% to 75% of his meals. He is voiding without difficulty. No Montanez is in place. He is still on IV vancomycin and Zosyn. Hematocrit is 28%. Electrolytes are within normal limits. BUN 7 and creatinine 0.5. PLAN: Will get a chest x-ray tomorrow morning and we will plan to remove his remaining chest tube tomorrow, depending on the chest x-ray and its output. We will continue having him use incentive spirometry and get up in a chair. cc: Merary Bob MD
[2016-10-04] MEDS: TORADOL IV SCH ×2 (00:39→06:07)
[2016-10-04] MEDS: DUONEB (A & A) INH SCH ×6 (03:05→23:15)
[2016-10-04] MEDS: DEMEROL IV PRN ×8 (03:33→22:43)
[2016-10-04] MEDS: ZOSYN 3.375 GM/NS 3.375 GM/50 ML IVPB IV SCH ×4 (03:38→22:20)
[2016-10-04 04:31] LABS: HEMATOCRIT 28.7 % (42.0-52.0); HEMOGLOBIN 9.5 g/dL (14.0-18.0); MCH 29.9 PG (27-31); MCHC 33.1 g/dL (33-37); MCV 90.3 FL (81-99); MPV 8.7 FL (7.4-10.4); RBC 3.18 XMIL (4.7-6.1)
[2016-10-04 04:56] LABS: AGAP 9; BUN 9 mg/dL (8-22); CALCIUM 7.9 mg/dL (8.8-10.2); CHLORIDE 99 mmol/L (98-107); COSMO 277; POTASSIUM 3.7 mmol/L (3.5-5.1); SODIUM 140 mmol/L (136-145); TCO2 32 mmol/L (25-35)
[2016-10-04] MEDS: LOVENOX SUBQ SCH (05:27)
[2016-10-04] MEDS: HUMALOG SUBQ SCH ×4 (06:06→21:08)
[2016-10-04] MEDS: PRILOSEC PO SCH (06:07)
--- NOTE | 2016-10-04 07:52 | Diag Imaging Result Doc PS360 ---
EXAM: CHEST-PORTABLE - 10/04/2016 HISTORY: L thoracotomy. TECHNIQUE: Portable chest 0520 COMPARISON: 10/02/2016 FINDINGS: There are postsurgical changes on the left similar to the prior exam. One of the two left chest tubes has been removed, the other stable position. There is no pneumothorax identified. There is mild atelectasis at the right base. Heart size is normal. PICC remains in place IMPRESSION: Stable postsurgical changes on the left. Interval removal of one of two left chest tubes. No evidence of pneumothorax. Mild atelectasis at right base. Electronically signed by Everton Hughes 10/04/2016 7:50 AM
[2016-10-04] MEDS: NICODERM PATCH TD SCH (08:18)
[2016-10-04] MEDS: SUBUTEX SL SCH ×2 (08:18→21:09)
--- NOTE | 2016-10-04 11:14 | PROGRESS NOTE ---
DATE: 10/04/2016 Mr. Dia is doing well. I removed his 2nd left-sided chest tube today because there was very little drainage and no air leak. His chest x-ray is satisfactory. He is tolerating a regular diet. We will move him to the floor. cc: Merary Bob MD
[2016-10-04] MEDS: PHENERGAN IV PRN (17:01)
--- NOTE | 2016-10-04 18:05 | PROGRESS NOTE ---
DATE: 10/04/2016 SUBJECTIVE: Patient has no focal complaints. OBJECTIVE: Vital signs: Blood pressure 116/70, heart rate 93, respiratory rate 20, temperature 97.9 degrees, 95% on room air. Cardiovascular: Regular rate and rhythm. Pulmonary: Bilateral breath sounds. Clear to auscultation. GI: Soft, nontender, nondistended. Bowel sounds are positive. LABORATORY STUDIES: White count 8, hemoglobin and hematocrit 9 and 28, platelets 445,000. Chemistries were unremarkable. Chest x-ray shows expanded lung, a little bit infiltrate at the left base. PROBLEM LIST: 1. Multiloculated pleural effusion, presumably parapneumonic associated with Klebsiella pneumonia. We will continue empiric antibiotics. The patient is on Zosyn. Acceptable alternatives are Augmentin or Levaquin orally. I defer to Dr. Bustillos since he is involved about long-term IV antibiotics versus prolonged course of oral antibiotics. We need to work on patient's ambulation and see how the patient does. 2. Anemia. Clinically stable. Continue to monitor. 3. Chronic obstructive pulmonary disease. Stable on current medications. Advised on tobacco cessation. 4. Disposition. He is on the floor. Possibly home in 1-2 days. Again, only outlying issue may be home IV therapy. We will continue to follow. cc: Sandeep Lin MD
[2016-10-05] MEDS: DUONEB (A & A) INH SCH ×6 (02:35→23:24)
[2016-10-05] MEDS: ZOSYN 3.375 GM/NS 3.375 GM/50 ML IVPB IV SCH ×4 (03:09→21:37)
[2016-10-05] MEDS: DEMEROL IV PRN ×7 (03:16→22:22)
[2016-10-05 05:39] LABS: HEMATOCRIT 27.6 % (42.0-52.0); MCH 30.2 PG (27-31); MCHC 32.6 g/dL (33-37); MCV 92.6 FL (81-99); MPV 8.5 FL (7.4-10.4); RBC 2.98 XMIL (4.7-6.1)
[2016-10-05 05:53] LABS: AGAP 7; BUN 11 mg/dL (8-22); CALCIUM 7.9 mg/dL (8.8-10.2); CHLORIDE 97 mmol/L (98-107); COSMO 274; POTASSIUM 3.7 mmol/L (3.5-5.1); SODIUM 137 mmol/L (136-145); TCO2 33 mmol/L (25-35)
[2016-10-05] MEDS: LOVENOX SUBQ SCH (06:01)
[2016-10-05] MEDS: PRILOSEC PO SCH (06:01)
[2016-10-05] MEDS: HUMALOG SUBQ SCH ×4 (06:19→23:00)
[2016-10-05] MEDS: SUBUTEX SL SCH ×2 (09:57→23:01)
[2016-10-05] MEDS: NICODERM PATCH TD SCH (09:57)
--- NOTE | 2016-10-05 15:36 | PROGRESS NOTE ---
DATE: 10/05/2016 PRESENT ILLNESS: The patient is status post decortication of the left lower lobe. He has had pneumonia in that area. MEDICATIONS: He has been on Zosyn now for 8 days. PHYSICAL EXAMINATION: Vital Signs: Temperature is 98.9 degrees, pulse 85, respirations 20, blood pressure 134/73. General: This is a chronically ill-appearing, medically ill- appearing, middle- aged male. He is in no acute distress. Lungs: There were few rales heard in the left base, but for the most part the lung was clear. The right lung was also clear. Cardiovascular: Heart rate is regular. Abdomen: Soft and nontender. Chest: The patient's chest tubes have all been removed. Ears, Nose, and Throat: The patient is missing many teeth. The teeth they have are in poor state of repair. Some are necrotic and some have caries. LAB AND X-RAY: I do not have a chest x-ray from today. His creatinine is 0.5. GFR is greater than 60. All cultures from the chest are sterile. CBC shows a white count of 8010, hemoglobin 9, and platelet count 427,000. The patient's chest x-ray yesterday showed post- surgical changes on the left, interval removal of 2 left-sided chest tubes. No evidence of pneumothorax. Mild atelectasis at the right base. ASSESSMENT AND PLAN: I plan to continue Zosyn. Patient is status post decortication. He also has pneumonia. COMORBIDITIES: Include the followin. He smokes cigarettes. 2. He has chronic obstructive pulmonary disease. 3. Malnutrition. 4. Very poor dental hygiene. cc: Stuart Bustillos MD MTDD
--- NOTE | 2016-10-05 16:55 | PROGRESS NOTE ---
DATE: 10/05/2016 SUBJECTIVE: The patient is resting comfortably in bed. He has no complaints today. OBJECTIVE: Vital Signs: Temperature 98 degrees, blood pressure 103/70, heart rate 92, respirations 14, O2 saturations 96% on room air. General: This is an elderly male, lying in bed, in no acute distress. Head: Normocephalic, atraumatic. Heart: S1, S2. Normal. Regular rate and rhythm. Lungs: Equal air entry bilaterally. No crackles, no rales. Abdomen: Positive bowel sounds. Soft, nontender, nondistended. Extremities: No edema. No cyanosis. Neurologic: The patient is alert and oriented x3. LABORATORY: Hemoglobin 9, hematocrit 27, platelets 427,000, white blood cell count 8,000. BUN 11, creatinine 0.5, glucose 120, sodium 137, potassium 3.7. ASSESSMENT AND PLAN: 1. Left chest empyema status post left thoracotomy with decortication. The chest tube was removed over the weekend. We will continue to monitor the patient closely. 2. Pneumonia secondary to Klebsiella. Continue on Zosyn. Further recommendations as per Dr. Bustillos. 3. Iron-deficiency anemia. We will start the patient on Icar-C. 4. Debility. Continue with physical therapy. 5. Chronic obstructive pulmonary disease. Stable. Continue with bronchodilator therapy. 6. Tobacco dependence. The patient has been counseled about tobacco cessation. 7. Disposition. We will await further recommendations regarding long-term IV antibiotic therapy. cc: Mirtha Rodriguez MD
--- NOTE | 2016-10-05 18:37 | PROGRESS NOTE ---
DATE: 10/05/2016 SUBJECTIVE: Mr. Dia has been moved to the floor. He has only been up to sit on the bedside commode. We certainly need to increase his activity up twice a day even ambulating. He needs to be able to walk to the bathroom or he will get another pneumonia so will get physical therapy involved. I have talked to the nurses aides and we need to increase his activity. OBJECTIVE: His heart rate is 89, blood pressure 117/74, O2 saturation 97%. He is afebrile. His white blood cell count is normal. Hematocrit is 27%. Sugars in satisfactory control. He is still on IV Zosyn. He is having some soreness because of his left thoracotomy. He is eating about 25-50% of meals. PLAN: I will ask physical therapy to help us ambulate him. I have also spoke with the nurses about increasing his activity and using his incentive spirometry. As he gets stronger we will work to get him home. cc: Merary Bob MD
--- NOTE | 2016-10-06 00:23 | DISCHARGE SUMMARY ---
ADMISSION DATE: 09/27/2016 DISCHARGE DATE: 10/05/2016 DATE OF ADMISSION: 09/27/2016. DATE OF DISCHARGE: 10/05/2016. ADMITTING DIAGNOSIS: Infected left toe. DISCHARGE DIAGNOSIS: Infected left toe. PRINCIPAL PROCEDURE: Amputation. END OF DICTATION--DICTATION ENDS HERE cc: Merary Bob MD
[2016-10-06] MEDS: DEMEROL IV PRN ×7 (01:23→20:41)
[2016-10-06] MEDS: DUONEB (A & A) INH SCH ×6 (03:22→23:23)
[2016-10-06] MEDS: ZOSYN 3.375 GM/NS 3.375 GM/50 ML IVPB IV SCH ×3 (04:27→16:02)
[2016-10-06] MEDS: LOVENOX SUBQ SCH (06:04)
[2016-10-06] MEDS: PRILOSEC PO SCH (06:04)
[2016-10-06] MEDS: HUMALOG SUBQ SCH ×4 (06:31→20:57)
[2016-10-06 07:12] LABS: MANUAL DIFF NEEDED? NO
[2016-10-06 07:23] LABS: BASO% 0.1 % (0.0-0.8); EOS# 0.07 X1000 (0.0-0.7); HEMATOCRIT 32.2 % (42.0-52.0); HEMOGLOBIN 10.4 g/dL (14.0-18.0); IMM GRAN# 0.03 X1000 (0.0-0.04); IMM GRAN% 0.4 % (0.0-0.5); LYMPH# 0.97 X1000 (1.2-3.4); MCH 29.1 PG (27-31); MCHC 32.3 g/dL (33-37); MCV 90.2 FL (81-99); MONO# 0.83 X1000 (0.11-0.59); MPV 8.5 FL (7.4-10.4); NEUT% 72.5 % (42.2-75.2); PLT 511 X1000 (130-400); RBC 3.57 XMIL (4.7-6.1)
[2016-10-06] MEDS: NICODERM PATCH TD SCH ×2 (07:46→10:13)
[2016-10-06] MEDS: ICAR-C PO SCH ×2 (07:46→10:13)
[2016-10-06 07:53] LABS: AGAP 13; BUN 8 mg/dL (8-22); CALCIUM 8.6 mg/dL (8.8-10.2); CHLORIDE 98 mmol/L (98-107); COSMO 277; POTASSIUM 3.8 mmol/L (3.5-5.1); SODIUM 139 mmol/L (136-145); TCO2 28 mmol/L (25-35)
[2016-10-06] MEDS: ZOFRAN IV PRN ×3 (08:48→17:17)
[2016-10-06] MEDS: SUBUTEX SL SCH ×2 (10:12→20:50)
--- NOTE | 2016-10-06 12:10 | PROGRESS NOTE ---
DATE: 10/06/2016 SUBJECTIVE: Mr. Reggie Dia is a 65-year-old white male who is now postop day 6 from a left thoracotomy and decortication because of an infection, left chest. He was hospitalized in the ICU with 2 chest tubes initially, but now he is on the floor. Both his chest tubes have been removed and his white blood cell count is normal. His appetite is improving and we are trying to increase his activity with the help of physical therapy and his strength. OBJECTIVE: Vital Signs: His heart rate is 84, blood pressure 131/78, and O2 saturation is 97%. He is afebrile. Lungs: He has no work of breathing. Genitourinary: He is voiding without difficulty. Gastrointestinal: He is eating about 25% of his meals. LABORATORY: His white blood cell count is normal. His hematocrit is 32%. His BUN and creatinine are 8 and 0.5. PLAN: I do not feel that he needs long-term IV antibiotics and I think that it is probably time to stop his IV Zosyn with a normal white blood cell count and he is afebrile. I will leave those decisions to Dr. Bustillos. He is tolerating a diet and we are increasing his activity with the help of physical therapy to increase his strength. I think we need to look for discharge home or other disposition. His wilmar will remain in his left thoracotomy incision for approximately 3-4 more days. cc: Merary Bob MD
[2016-10-06] MEDS ORDERED: LACTULOSE PO ONE (12:23)
[2016-10-06] MEDS ORDERED: MIRALAX PO ONE (12:23)
[2016-10-06] MEDS ORDERED: VITAMIN D PO SCH (12:30)
--- NOTE | 2016-10-06 16:56 | PROGRESS NOTE ---
DATE: 10/06/2016 SUBJECTIVE: The patient is resting comfortably in bed. He states that he still feels weak when he walks. There are no bowel movements documented in the chart. OBJECTIVE: Vital Signs: Temperature 98, blood pressure 115/67, heart rate 96, respirations 20. O2 saturations 97% on room air. General: This is a chronically ill-appearing, elderly male, lying in bed, in no acute distress. Head: Normocephalic, atraumatic. Heart: S1, S2. Normal. Regular rate and rhythm. Lungs: Equal air entry bilaterally. Abdomen: Positive bowel sounds. Soft, nontender, nondistended. Extremities: No edema. No cyanosis. No calf tenderness. Neurologic: The patient is alert and oriented x3. LABS: White blood cell count 6.9, hemoglobin 10, hematocrit 32, platelets 511. Sodium 139, potassium 3.8, chloride 98, CO2 of 28, BUN 8, creatinine 0.5, glucose 114. Vitamin D 20. ASSESSMENT AND PLAN: 1. Left chest empyema, status post left thoracotomy with decortication, stable. 2. Pneumonia secondary to Klebsiella. Continue on antibiotic therapy as directed by Dr. Bustillos. 3. Constipation. Will start the patient on scheduled laxative therapy. 4. Iron-deficiency anemia. Continue on iron supplementation. 5. Debility. Continue with physical therapy. The patient states that he does not want to go to rehab. 6. Chronic obstructive pulmonary disease. Stable. Continue on bronchodilator therapy. 7. Tobacco dependence. The patient has been counseled about smoking cessation. DISPOSITION: We will plan to discharge the patient home once okay with Dr. Bustillos. cc: Mirtha Rodriguez MD [facility]
--- NOTE | 2016-10-06 17:03 | PROGRESS NOTE ---
DATE: 10/06/2016 PRESENT ILLNESS: The patient is status post decortication of his left lung. In that area, he had a pneumonia, which has cleared. MEDICATIONS: This is day 9 of treatment with Zosyn. PHYSICAL EXAMINATION: Vital Signs: Temperature is 98.9 degrees, pulse 96, respirations 20, blood pressure 115/67. General: This is a chronically ill-appearing, middle-aged male. He has very poor oral hygiene. Most of his teeth are gone and many of the remaining teeth appear necrotic. Lungs: Clear to auscultation. Cardiovascular: Regular heart rate. Chest: The patient's incision is healing well. LABORATORY AND X-RAY: I do not have a new x-ray for today. Today, the patient's CBC showed a white count of 6940, hemoglobin 10.4, and platelet count 511,000. Creatinine 0.5. GFR is greater than 60. ASSESSMENT AND PLAN: The patient is status post decortication. I agree with Dr. Bob that it would be reasonable to stop the patient's Zosyn today. Patient's comorbidities include cigarette smoking, COPD, malnutrition and very poor dental hygiene. I will be signing off the case today. I am available to see the patient on a p.r.n. basis. I have discontinued his Zosyn. cc: Stuart Bustillos MD
[2016-10-06] MEDS: MIRALAX PO SCH (20:41)
[2016-10-06] MEDS: DULCOLAX PR SCH (20:41)
[2016-10-06] MEDS: KLONOPIN PO SCH (20:51)
[2016-10-07] MEDS: DEMEROL IV PRN ×3 (01:57→08:44)
[2016-10-07] MEDS: DUONEB (A & A) INH SCH ×6 (03:25→23:20)
[2016-10-07] MEDS: LOVENOX SUBQ SCH (05:25)
[2016-10-07] MEDS: PRILOSEC PO SCH ×2 (05:25→06:15)
[2016-10-07] MEDS: HUMALOG SUBQ SCH ×5 (06:25→20:54)
[2016-10-07 06:46] LABS: MANUAL DIFF NEEDED? NO
[2016-10-07 06:54] LABS: BASO% 0.4 % (0.0-0.8); EOS# 0.18 X1000 (0.0-0.7); EOS% 2.4 % (0.0-10.0); HEMATOCRIT 30.5 % (42.0-52.0); HEMOGLOBIN 9.8 g/dL (14.0-18.0); IMM GRAN# 0.05 X1000 (0.0-0.04); IMM GRAN% 0.7 % (0.0-0.5); LYMPH# 1.55 X1000 (1.2-3.4); LYMPH% 20.8 % (20.5-51.1); MCH 29.4 PG (27-31); MCHC 32.1 g/dL (33-37); MCV 91.6 FL (81-99); MONO# 0.91 X1000 (0.11-0.59); MONO% 12.2 % (1.7-9.3); MPV 8.6 FL (7.4-10.4); NEUT% 63.5 % (42.2-75.2); PLT 501 X1000 (130-400); RBC 3.33 XMIL (4.7-6.1)
[2016-10-07 07:36] LABS: AGAP 11; BUN 8 mg/dL (8-22); CALCIUM 8.5 mg/dL (8.8-10.2); CHLORIDE 99 mmol/L (98-107); COSMO 278; POTASSIUM 4.1 mmol/L (3.5-5.1); SODIUM 140 mmol/L (136-145); TCO2 30 mmol/L (25-35)
[2016-10-07] MEDS: ICAR-C PO SCH (08:44)
[2016-10-07] MEDS: MIRALAX PO SCH ×2 (08:45→20:52)
[2016-10-07] MEDS: ZOFRAN IV PRN ×2 (09:06→12:52)
[2016-10-07] MEDS ORDERED: STERILE WATER INJ. INJ ONE (09:30)
[2016-10-07] MEDS ORDERED: CATHFLO IV ONE (09:30)
[2016-10-07] MEDS: NICODERM PATCH TD SCH (10:10)
[2016-10-07] MEDS: SUBUTEX SL SCH ×2 (10:10→20:52)
[2016-10-07] MEDS: NORCO-10 PO PRN (12:11)
--- NOTE | 2016-10-07 17:44 | PROGRESS NOTE ---
DATE: 10/07/2016 SUBJECTIVE: The patient is resting comfortably in bed. He did get up and walk with physical therapy today. OBJECTIVE: Vital Signs: Temperature 98 degrees, blood pressure 107/68, heart rate 91, respirations 18, O2 saturations 98% on room air. General: This is a chronically ill-appearing elderly male lying in bed. Head: Normocephalic, atraumatic. Heart: S1, S2. Normal. Regular rate and rhythm. Lungs: Clear to auscultation bilaterally. Abdomen: Positive bowel sounds. Soft, nontender, nondistended. Extremities: No edema. No cyanosis. No calf tenderness. Neurologic: The patient is alert and oriented x3. LABORATORY: Reviewed. ASSESSMENT AND PLAN: 1. Left chest empyema, status post left thoracotomy with decortication. Stable. 2. Pneumonia secondary to Klebsiella. The patient has completed antibiotic therapy and it has been discontinued. 3. Constipation. Resolved. The patient is currently on scheduled laxative therapy. 4. Iron-deficiency anemia. Continue with iron supplementation. 5. Debility. Continue with physical therapy. The patient states that he would like home health to be set up. 6. Chronic obstructive pulmonary disease. Stable. 7. Tobacco dependence. The patient has been counseled about smoking cessation. 8. Disposition. The patient should be stable for discharge home with home health tomorrow. cc: Mirtha Rodriguez MD
[2016-10-07] MEDS: KLONOPIN PO SCH (20:52)
[2016-10-07] MEDS: DULCOLAX PR SCH (20:52)
[2016-10-08] MEDS: NORCO-10 PO PRN (02:22)
[2016-10-08] MEDS: DUONEB (A & A) INH SCH ×3 (03:30→11:17)
[2016-10-08] MEDS: LOVENOX SUBQ SCH (06:10)
[2016-10-08] MEDS: PRILOSEC PO SCH (06:10)
[2016-10-08] MEDS: HUMALOG SUBQ SCH ×2 (06:18→12:14)
[2016-10-08 07:17] VITALS: BP 115/75
[2016-10-08] MEDS: MIRALAX PO SCH (09:02)
[2016-10-08] MEDS: NICODERM PATCH TD SCH ×2 (09:02→09:05)
[2016-10-08] MEDS: ICAR-C PO SCH (09:02)
[2016-10-08] MEDS: SUBUTEX SL SCH (09:03)
[2016-10-08] MEDS: ZOFRAN IV PRN (09:14)
--- NOTE | 2016-10-09 11:15 | DISCHARGE SUMMARY ---
ADMISSION DATE: 09/27/2016 DISCHARGE DATE: 10/08/2016 CONSULTATIONS: Dr. Abebe Bob with General Surgery. Dr. Stuart Bustillos with Infectious Disease. PERTINENT PROCEDURES: 1. Abdomen pelvis CT showed left lower lobe pneumonia, loculated effusion, constipation. 2. Chest CT showed multiple separation loculations within the left pleural effusion, left lower lobe atelectasis with possible underlying infiltrate, mildly prominent mediastinal and hilar lymph nodes. 3. Left thoracotomy with decortication performed by Dr. Bob with placement of a left chest tube. DISCHARGE DIAGNOSES: 1. Chest empyema status post left thoracotomy with decortication 2. Pneumonia secondary to Klebsiella 3. Constipation 4. Iron deficiency anemia 5. Debility 6. Chronic obstructive pulmonary disease 7. Tobacco dependence 8. Sepsis HOSPITAL COURSE: Mr. Dia is a 65-year-old male with a history of chronic pain, on Suboxone therapy, COPD, diabetes mellitus, hypertension, as well as nicotine dependence, who presented with a 2 month history of left lower chest, left upper quadrant abdominal pain. His PCP told him to go to a spine doctor for further evaluation which he did not do. Over the past few days prior to admission he started having fevers, chills, shortness of breath with a cough with yellow sputum production. He also reported no appetite over the last few months and had been losing weight. Denied any hemoptysis or anginal-type chest pain. When he came to the ED he had laboratory data and diagnostics done. His white count was elevated with fever. His chest x-rays consistent with a left lower lobe pneumonia. Abdomen and pelvis CT showed loculated pleural effusions and a left lower lobe pneumonia. No intra-abdominal acute abnormalities are seen. The patient was initiated on broad-spectrum antibiotics. Blood cultures were obtained, as well as initiated on IV fluids. He was initially admitted for community-acquired pneumonia and sepsis. Started on IV hydration. Dr. Stuart Bustillos with Infectious Disease was brought on board, as well as General Surgeon Dr. Bob secondary to a chest CT that showed areas of loculated fluid on the left chest. The patient underwent a left thoracotomy with decortication with placement of a left chest tube by Dr. Bob on 09/30/2016. The patient kept the chest tube for several days. He was initially in the ICU with 2 chest tubes initially. He was able to transfer to the floor. Both his chest tubes have since been removed. His white count has normalized. His appetite is improving. He has increased his activity with physical therapy to help with his strength. Patient has finished his full course of IV antibiotics. They have already been discontinued by Dr. Stuart Bustillos. As per Dr. Bob, his wilmar will remain in his left thoracotomy incision for approximately 3-4 more days. This was on the . The patient is appropriate for discharge home today with his sister and home health and physical therapy. VITAL SIGNS: Temperature is 98.1 degrees, heart rate 87, respirations 16, blood pressure 115/75, O2 is 97% on room air. DISCHARGE DIET: Regular with Glucerna shakes. DISCHARGE MEDICATIONS: 1. Subutex 2 mg sublingual 1 p.o. b.i.d., half at 2 p.m. 2. Vitamin D 67455 units p.o. q.7 days. 3. Taylor 10 one each p.o. q.6 hours p.r.n. 4. Icar C 1 each p.o. daily. FOLLOW-UP: The patient is being discharged home with home health physical therapy with his sister. He will follow up with Dr. Hubbard in 1 week. He will need to obtain a primary care physician and follow up with them in 7-10 days. Patient can return to the ED for any worsening of symptoms. DISCHARGE TIME: Greater than 30 minutes. Dictated by MIYA Villatoro for Mirtha Rodriguez MD cc: Mirtha Rodriguez MD [facility]
== END 2016-10-08 13:08 | disposition home health service (06) ==
LOC: ED 07:28 → SUATTDRO 12:02 → 3N 12:02 → ICU 09-30 18:18 → 4N 10-04 12:09
PROVIDERS: ATTEND Internal Medicine